=== PATIENT | male | born 1960 | race Caucasian/White ===

== ENCOUNTER 2021-01-13 23:00 | Inpatient (IN) ==
[2021-01-14 02:39] LABS: Basophils % 0.3 %; Eosinophils # 0.2 K/mcL (0.0-0.6); Eosinophils % 1.7 %; Hematocrit 33.7 % (37.5-50.1); Hemoglobin 10.5 g/dL (12.9-16.9); Immature Granulocytes % 0.4 % (0-4); Lymphocytes # 1.8 K/mcL (0.6-4.6); Lymphocytes % 17.9 %; Mean Corpuscular HGB Conc 31.2 g/dL (31.6-35.5); Mean Corpuscular Hemoglobin 24.6 pg (28.0-33.3); Mean Corpuscular Volume 78.9 fL (83.0-100.0); Mean Platelet Volume 8.8 fL (9.4-12.4); Monocytes # 0.8 K/mcL (0.0-1.3); Monocytes % 8.5 %; Platelet Count 344 K/mcL (140-400); Red Blood Count 4.27 M/mcL (4.19-5.50); Segmented Neutrophils % 71.2 %; White Blood Count 9.8 K/mcL (4.3-11.1)
[2021-01-14] MEDS ORDERED: Melatonin 3 MG TABLET PO PRN ×2 (02:51→11:15)
[2021-01-14] MEDS ORDERED: Naloxone 0.4 MG/ML INJ IVP PRN ×2 (02:51→11:15)
[2021-01-14] MEDS ORDERED: *HR* Promethazine 25 MG/ML VIAL IM PRN ×2 (02:51→11:15)
[2021-01-14 02:55] LABS: Alanine Aminotransferase 7 Units/L (7-52); Albumin 2.9 g/dL (3.5-5.7); Albumin/Globulin Ratio 0.9 (1.1-2.2); Alkaline Phosphatase 72 Units/L (34-104); Aspartate Amino Transferase 9 Units/L (13-39); BUN/Creatinine Ratio 17 (6-26); Bilirubin,Total 0.3 mg/dL (0.3-1.0); Blood Urea Nitrogen 22 mg/dL (6-20); Calcium 8.1 mg/dL (8.6-10.3); Carbon Dioxide 24 mEq/L (23-29); Chloride 109 mEq/L (98-107); Globulin 3.2 g/dL (2.4-3.5); Glucose 100 mg/dL (70-105); Magnesium 1.5 mg/dL (1.6-2.6); Osmolality,Calculated 293 (280-300); Phosphorous 2.5 mg/dL (2.7-4.5); Potassium 3.7 mEq/L (3.5-5.1); Sodium 140 mEq/L (136-145); Total Protein 6.1 g/dL (6.4-8.9); eGFR For African Americans > 60 (> 60); eGFR For Non-African Americans 56 (> 60)
[2021-01-14] MEDS ORDERED: Isovue-370 500 ML BOTTLE IVP ONE ×2 (02:58→11:15)
[2021-01-14] MEDS ORDERED: 0.9 % Sodium Chloride 1,000 ML IVC SCH (03:00)
[2021-01-14] MEDS ORDERED: D5% in Water 1,000 ML IVC PRN ×2 (03:02→11:15)
[2021-01-14] MEDS ORDERED: *HR* Dextrose 50 % in Water (Syg) 50 ML SYRINGE IVP PRN ×2 (03:02→11:15)
[2021-01-14] MEDS ORDERED: Dextrose Gel 15 GM/37.5 ML TUBE PO PRN ×4 (03:02→11:15)
[2021-01-14] MEDS ORDERED: Ipratropium/Albuterol Neb 3 ML IH PRN ×2 (03:02→11:15)
[2021-01-14] MEDS ORDERED: Saliva Stimulant 44.3ml BOTTLE PO PRN ×2 (03:15→11:15)
[2021-01-14 03:58] LABS: INR 1.2; Prothrombin Time 13.9 Seconds (9.4-12.1)
[2021-01-14 04:14] LABS: % Iron Saturation 5 % (20-55); Iron 14 mcg/dL (65-175); Transferrin 202 mg/dL (203-362)
[2021-01-14 04:33] LABS: Ferritin 40 ng/mL (20-250)
[2021-01-14 04:38] LABS: Folate 7.6 ng/mL (3.0-16.0)
[2021-01-14] MEDS ORDERED: Iron Sucrose Complex 400 MG in 0.9 % Sodium Chloride 250 ML IVPB ONE ×2 (06:41→12:45)
[2021-01-14] MEDS ORDERED: *HR* Midazolam HCl 2 MG/2 ML VIAL ONE (07:44)
[2021-01-14] MEDS ORDERED: Ondansetron 4 MG/2 ML VIAL ONE (07:44)
[2021-01-14] MEDS ORDERED: Lidocaine -MPF 2% 5 ML VIAL ONE (07:44)
[2021-01-14] MEDS ORDERED: *HR* FentaNYL (PF) 100 MCG/2 ML VIAL ONE (07:44)
[2021-01-14] MEDS ORDERED: *HR* Propofol 200 MG/20 ML VIAL IVP ONE (07:44)
[2021-01-14] MEDS ORDERED: Piperacillin/Tazobactam 3.375 GM in 0.9 % Sodium Chloride Mini Bag 100 ML IVPB SCH ×2 (08:00→16:00)
[2021-01-14] MEDS ORDERED: *HR* FentaNYL (PF) 100 MCG/2 ML VIAL IVP PRN (08:46)
[2021-01-14] MEDS ORDERED: Ondansetron 4 MG/2 ML VIAL IVP PRN (08:46)
[2021-01-14] MEDS ORDERED: Albuterol 2.5 MG/3 ML NEBULIZER IH PRN (08:46)
[2021-01-14] MEDS ORDERED: Multivit/Ca/Min/Fe/FA 1 TAB TABLET PO SCH (09:00)
[2021-01-14] MEDS ORDERED: Lactobacillus 1 EACH CAP.SPRINK PO SCH (09:00)
[2021-01-14] MEDS ORDERED: cefTRIAXone 2,000 MG in 0.9 % Sodium Chloride Mini Bag 100 ML IVPB SCH (09:00)
[2021-01-14] MEDS ORDERED: Cyanocobalamin (B-12) 1,000 MCG TABLET PO SCH (09:00)
[2021-01-14] MEDS ORDERED: Nicotine 21 MG PATCH.TD24 TD SCH (09:00)
[2021-01-14] MEDS ORDERED: Chlorhexidine Rinse 15 ML MOUTHWASH MM SCH (09:00)
[2021-01-14] MEDS ORDERED: Budesonide/Formoterol 160/4.5 1 PUFF INH IH SCH (10:00)
[2021-01-14] MEDS ORDERED: Iron Sucrose Complex 200 MG in 0.9 % Sodium Chloride 100 ML IVPB SCH (11:00)
[2021-01-14] MEDS: 0.9 % Sodium Chloride 1,000 ML IVC SCH (15:06)
[2021-01-14] MEDS: Calcium Gluconate 1gm/50mL 1 GM/50 ML BAG IVPB SCH (15:07)
[2021-01-14] MEDS: Acetaminophen 325 MG TABLET PO PRN (16:48)
[2021-01-14] MEDS: Piperacillin/Tazobactam 3.375 GM in 0.9 % Sodium Chloride Mini Bag 100 ML IVPB SCH (18:30)
[2021-01-14] MEDS ORDERED: *HR* Labetalol 20 MG/4 ML SYRINGE IVP ONE (20:21)
[2021-01-14] MEDS: Chlorhexidine Rinse 15 ML MOUTHWASH MM SCH (21:05)
[2021-01-14] MEDS: Lactobacillus 1 EACH CAP.SPRINK PO SCH (21:05)
[2021-01-14] MEDS: Budesonide/Formoterol 160/4.5 1 PUFF INH IH SCH (21:48)
[2021-01-15] MEDS: Piperacillin/Tazobactam 3.375 GM in 0.9 % Sodium Chloride Mini Bag 100 ML IVPB SCH ×3 (03:12→17:41)
[2021-01-15] MEDS: Acetaminophen 325 MG TABLET PO PRN ×2 (05:08→12:45)
[2021-01-15] MEDS: Budesonide/Formoterol 160/4.5 1 PUFF INH IH SCH ×2 (07:21→20:02)
[2021-01-15] MEDS: 0.9 % Sodium Chloride 1,000 ML IVC SCH (09:14)
[2021-01-15] MEDS: Multivit/Ca/Min/Fe/FA 1 TAB TABLET PO SCH (09:15)
[2021-01-15] MEDS: lisinopriL 20 MG TABLET PO SCH (09:15)
[2021-01-15] MEDS: Cyanocobalamin (B-12) 1,000 MCG TABLET PO SCH (09:15)
[2021-01-15] MEDS: Lactobacillus 1 EACH CAP.SPRINK PO SCH ×2 (09:15→21:00)
[2021-01-15] MEDS: Chlorhexidine Rinse 15 ML MOUTHWASH MM SCH ×2 (09:16→21:00)
[2021-01-15] MEDS: Nicotine 21 MG PATCH.TD24 TD SCH (09:16)
[2021-01-16] MEDS: Piperacillin/Tazobactam 3.375 GM in 0.9 % Sodium Chloride Mini Bag 100 ML IVPB SCH ×3 (01:15→17:04)
[2021-01-16 05:05] LABS: Hematocrit 27.4 % (37.5-50.1); Mean Corpuscular HGB Conc 29.2 g/dL (31.6-35.5); Mean Corpuscular Hemoglobin 23.7 pg (28.0-33.3); Mean Corpuscular Volume 81.1 fL (83.0-100.0); Mean Platelet Volume 9.2 fL (9.4-12.4); Platelet Count 325 K/mcL (140-400); Red Blood Count 3.38 M/mcL (4.19-5.50); Red Cell Distribution Width 16.8 % (11.5-14.5)
[2021-01-16 05:25] LABS: BUN/Creatinine Ratio 10 (6-26); Blood Urea Nitrogen 14 mg/dL (6-20); Calcium 7.9 mg/dL (8.6-10.3); Carbon Dioxide 25 mEq/L (23-29); Chloride 111 mEq/L (98-107); Glucose 93 mg/dL (70-105); Osmolality,Calculated 290 (280-300); Sodium 140 mEq/L (136-145); eGFR For African Americans > 60 (> 60); eGFR For Non-African Americans 52 (> 60)
[2021-01-16] MEDS: Calcium Gluconate 1gm/50mL 1 GM/50 ML BAG IVPB SCH (07:29)
[2021-01-16] MEDS: Chlorhexidine Rinse 15 ML MOUTHWASH MM SCH ×2 (09:13→21:25)
[2021-01-16] MEDS: Nicotine 21 MG PATCH.TD24 TD SCH ×2 (09:13→11:45)
[2021-01-16] MEDS: lisinopriL 20 MG TABLET PO SCH (09:14)
[2021-01-16] MEDS: Lactobacillus 1 EACH CAP.SPRINK PO SCH ×2 (09:15→21:25)
[2021-01-16] MEDS: Multivit/Ca/Min/Fe/FA 1 TAB TABLET PO SCH (09:15)
[2021-01-16] MEDS: Cyanocobalamin (B-12) 1,000 MCG TABLET PO SCH (09:15)
[2021-01-16] MEDS: Budesonide/Formoterol 160/4.5 1 PUFF INH IH SCH ×2 (10:02→20:25)
[2021-01-17 02:43] LABS: Hematocrit 28.4 % (37.5-50.1); Hemoglobin 8.7 g/dL (12.9-16.9); Mean Corpuscular HGB Conc 30.6 g/dL (31.6-35.5); Mean Corpuscular Hemoglobin 24.6 pg (28.0-33.3); Mean Corpuscular Volume 80.5 fL (83.0-100.0); Mean Platelet Volume 8.9 fL (9.4-12.4); Platelet Count 363 K/mcL (140-400); Red Blood Count 3.53 M/mcL (4.19-5.50); White Blood Count 14.8 K/mcL (4.3-11.1)
[2021-01-17] MEDS: Piperacillin/Tazobactam 3.375 GM in 0.9 % Sodium Chloride Mini Bag 100 ML IVPB SCH ×2 (02:57→09:51)
[2021-01-17 03:04] LABS: BUN/Creatinine Ratio 9 (6-26); Blood Urea Nitrogen 11 mg/dL (6-20); Calcium 8.4 mg/dL (8.6-10.3); Carbon Dioxide 27 mEq/L (23-29); Chloride 106 mEq/L (98-107); Glucose 72 mg/dL (70-105); Osmolality,Calculated 282 (280-300); Potassium 4.4 mEq/L (3.5-5.1); Sodium 137 mEq/L (136-145); eGFR For African Americans > 60 (> 60); eGFR For Non-African Americans 58 (> 60)
[2021-01-17] MEDS: Budesonide/Formoterol 160/4.5 1 PUFF INH IH SCH ×2 (07:55→19:50)
[2021-01-17] MEDS: lisinopriL 20 MG TABLET PO SCH (08:54)
[2021-01-17] MEDS: Lactobacillus 1 EACH CAP.SPRINK PO SCH ×2 (08:54→20:24)
[2021-01-17] MEDS: Cyanocobalamin (B-12) 1,000 MCG TABLET PO SCH (08:56)
[2021-01-17] MEDS: Nicotine 21 MG PATCH.TD24 TD SCH (08:56)
[2021-01-17] MEDS: Chlorhexidine Rinse 15 ML MOUTHWASH MM SCH ×2 (08:56→20:24)
[2021-01-17] MEDS: Multivit/Ca/Min/Fe/FA 1 TAB TABLET PO SCH (09:00)
[2021-01-17] MEDS: Acetaminophen 325 MG TABLET PO PRN (13:00)
[2021-01-18 02:58] VITALS: O2SAT 93
[2021-01-18 05:26] LABS: Hematocrit 27.8 % (37.5-50.1); Hemoglobin 8.7 g/dL (12.9-16.9); Mean Corpuscular HGB Conc 31.3 g/dL (31.6-35.5); Mean Corpuscular Hemoglobin 24.8 pg (28.0-33.3); Mean Corpuscular Volume 79.2 fL (83.0-100.0); Mean Platelet Volume 8.9 fL (9.4-12.4); Platelet Count 369 K/mcL (140-400); Red Blood Count 3.51 M/mcL (4.19-5.50); Red Cell Distribution Width 17.2 % (11.5-14.5); White Blood Count 13.9 K/mcL (4.3-11.1)
[2021-01-18 05:45] LABS: BUN/Creatinine Ratio 11 (6-26); Blood Urea Nitrogen 13 mg/dL (6-20); Calcium 8.4 mg/dL (8.6-10.3); Carbon Dioxide 29 mEq/L (23-29); Chloride 99 mEq/L (98-107); Glucose 79 mg/dL (70-105); Osmolality,Calculated 273 (280-300); Sodium 132 mEq/L (136-145); eGFR For African Americans > 60 (> 60); eGFR For Non-African Americans > 60 (> 60)
[2021-01-18 07:25] VITALS: BP 138/70; PULSE 97; TEMP 99.2
[2021-01-18] MEDS: Budesonide/Formoterol 160/4.5 1 PUFF INH IH SCH (08:12)
[2021-01-18] MEDS: Chlorhexidine Rinse 15 ML MOUTHWASH MM SCH (09:39)
[2021-01-18] MEDS: Nicotine 21 MG PATCH.TD24 TD SCH (09:41)
[2021-01-18] MEDS: lisinopriL 20 MG TABLET PO SCH (09:41)
[2021-01-18] MEDS: Cyanocobalamin (B-12) 1,000 MCG TABLET PO SCH (09:42)
[2021-01-18] MEDS: Lactobacillus 1 EACH CAP.SPRINK PO SCH (09:42)
[2021-01-18] MEDS: Multivit/Ca/Min/Fe/FA 1 TAB TABLET PO SCH (09:43)
== END 2021-01-18 12:30 | disposition home health service (06) | DRG 871 ==
LOC: 3ANU → SUATTDRO 01-14 01:30
PROVIDERS: ADMIT Family Medicine; ATTEND Internal Medicine